=== PATIENT | male | born 1955 | race Caucasian/White ===

== ENCOUNTER 2017-05-19 18:25 | Inpatient (IN) ==
[2017-05-19] MEDS ORDERED: DUONEB NEB STA (18:41)
[2017-05-19] MEDS ORDERED: SODIUM CHLORIDE 1,000 ML IV STA (18:41)
--- NOTE | 2017-05-19 18:46 | ED.PDOC ---
General ED Provider: Dr. JAYDE CHAPPELL Chief Complaint: Abdominal Pain Stated Complaint: Patient reports periumbilcal abdominal pain for two weeks. Also complains of cough with shortness of breath for the past two week getting worse. Time Seen by Physician: 18:44 Mode of Arrival: Walk-In Information Source: Patient Exam Limitations: No limitations Primary Care Provider: DOROTHY ZAMORANO Nursing and Triage Documentation Reviewed and Agree: Yes Review of Systems - Review Of Systems Constitutional: Reports: Loss of appetite Eyes: Reports: No symptoms Ears, Nose, Mouth, Throat: Reports: No symptoms Respiratory: Reports: Cough, Short of air Cardiac: Reports: No symptoms GI: Reports: Abdominal pain : Reports: No symptoms Musculoskeletal: Reports: No symptoms Skin: Reports: No symptoms Neurological: Reports: No symptoms Endocrine: Reports: No symptoms Hematologic/Lymphatic: Reports: No symptoms All Other Systems: Reviewed and Negative Past Medical History - Past Medical History Endocrine: Reports: Dyslipidemia Cardiovascular: Reports: Hypertension Respiratory: Reports: COPD Hematological: Reports: None Gastrointestinal: Reports: None Genitourinary: Reports: None Neuro/Psych: Reports: Migraine Musculoskeletal: Reports: Arthritis, Back Pain Cancer: Reports: None - Surgical History General Surgical History: Reports: Appendectomy, Orthopedic (Knee ), Back Surgery (Spinal surgery ) - Family History Family History: Reports: Unknown - Social History Smoking Status: Current every day smoker, Light tobacco smoker Hx Substance Use: No Alcohol Screening: None Physical Exam - Physical Exam Appearance: Ill-appearing Ill-appearing: Moderate Pain Distress: Moderate Eyes: COURTNEY, EOMI, Conjunctiva clear ENT: Ears normal, Nose normal, Oropharynx normal Neck: Supple Respiratory: Wheezes Cardiovascular: RRR, Pulses normal, No rub, No murmur GI/: Tender (periumbilical area ) Musculoskeletal: Normal strength, ROM intact, No edema, No calf tenderness Skin: Warm, Dry, Normal color Neurological: Sensation intact, Motor intact, Reflexes intact, Cranial nerves intact, Alert, Oriented Psychiatric: Anxious Critical Care Note - Critical Care Note Total Time (mins): 35 Course - Course Hematology/Chemistry: 05/20/17 04:41 05/20/17 04:41 Orders, Labs, Meds: Lab Review 05/19/17 05/19/17 18:41 18:50 WBC 11.89 H RBC 5.28 Hgb 16.5 Hct 48.3 MCV 91.5 MCH 31.3 H MCHC 34.2 RDW Coeff of Analilia 13.2 Plt Count 298 Immature Gran % (Auto) 0.4 Neut % (Auto) 75.0 Lymph % (Auto) 14.1 Nobles % (Auto) 7.4 Eos % (Auto) 2.4 Baso % (Auto) 0.7 Immature Gran # (Auto) 0.1 Neut # 8.9 H Lymph # 1.7 Nobles # 0.9 Eos # 0.3 Baso # 0.1 D-Dimer (Manual) 746.58 Puncture Site Lb O2 Saturation 86.0 L ABG pH 7.394 ABG pCO2 49.3 H ABG pO2 52.0 L* ABG HCO3 30.1 H ABG Total CO2 32 H ABG Base Excess 5 H Alejandro Test + FiO2 % 21.0 Sodium 135 L Potassium 4.0 Chloride 95 L Carbon Dioxide 29 Anion Gap 15.0 BUN 7 Creatinine 1.01 Estimated GFR (MDRD) 76.00 BUN/Creatinine Ratio 6.93 Glucose 134 H Calcium 9.5 Total Bilirubin 0.51 AST 20 ALT 21 Alkaline Phosphatase 102 Total Creatine Kinase 69 Troponin I < 0.0100 B-Natriuretic Peptide < 10 Total Protein 7.9 Albumin 3.8 Globulin 4.1 Albumin/Globulin Ratio 0.93 Amylase 28 Lipase 22 Orders Category Date Time Status ABG DRAW REQUEST Stat CARDIO 05/19/17 18:42 Completed EKG-(ED ONLY) Stat CARDIO 05/19/17 18:41 Completed NEBULIZER TREATMENT Stat CARDIO 05/19/17 18:42 Completed ED APPLY O2 .ONCE EMERGENCY 05/19/17 18:41 Active ED IV/MEDIPORT/POWERPORT .ONCE EMERGENCY 05/19/17 18:41 Active ABG Stat LAB 05/19/17 18:41 Completed AMYLASE Stat LAB 05/19/17 18:50 Completed B-TYPE NATRIURETIC PEPTIDE Stat LAB 05/19/17 18:50 Completed CBC W/ AUTO DIFF Stat LAB 05/19/17 18:50 Completed COMPREHENSIVE METABOLIC PANEL Stat LAB 05/19/17 18:50 Completed CREATINE KINASE Stat LAB 05/19/17 18:50 Completed D-DIMER Stat LAB 05/19/17 18:50 Completed LIPASE Stat LAB 05/19/17 18:50 Completed TROPONIN I Stat LAB 05/19/17 18:50 Completed 0.9 % Sodium Chloride [Saline Flush] MEDS 05/19/17 18:41 Ordered 1 syr IVF PRN PRN Ipratropium/Albuterol Neb [Duoneb] MEDS 05/19/17 18:41 Discontinued 1 vial NEB ONCE STA Methylprednisolone Sod Succ/Pf [Solu-Medrol 125 mg] MEDS 05/19/17 19:22 Discontinued 125 mg IVP ONCE STA Sodium Chloride 0.9% [Sodium Chloride] 1,000 ml MEDS 05/19/17 18:41 Discontinued IV BOLUS CHEST, 1V AP ONLY Stat RADS 05/19/17 18:[address] ABD/PEL WO RENAL STONE PROT Stat RADS 05/19/17 18:44 Completed Medications Generic Name Dose Route Start Last Admin Trade Name Freq PRN Reason Stop Dose Admin Albuterol/Ipratropium 1 vial 05/20/17 06:00 05/20/17 05:01 Duoneb NEB 1 vial RTQID LAILA Administration Albuterol/Ipratropium 1 vial 05/19/17 21:08 Duoneb NEB RTQ4H PRN Wheezing Dicyclomine HCl 10 mg 05/20/17 06:30 05/20/17 05:31 Bentyl PO 10 mg ACHS LAILA Administration Doxycycline Hyclate 100 mg 05/19/17 21:30 05/19/17 21:49 Doxycycline Hyclate PO 100 mg Q12HR LAILA Administration Enoxaparin Sodium 40 mg 05/20/17 09:00 Lovenox SUBCUT DAILY LAILA Sodium Chloride 1,000 mls @ 75 mls/hr 05/19/17 21:30 05/19/17 21:50 Sodium Chloride IV 75 mls/hr .[id number] LAILA Administration Lisinopril 10 mg 05/20/17 09:00 Zestril PO DAILY LAILA Meloxicam 7.5 mg 05/20/17 09:00 Mobic PO BID LAILA Methadone HCl 10 mg 05/20/17 09:00 Methadone PO TID LAILA Methylprednisolone Sodium Succinate 125 mg 05/20/17 05:00 05/20/17 05:30 Solu-Medrol 125 Mg IVP 125 mg Q8HR LAILA Administration Morphine Sulfate 2 mg 05/19/17 21:18 05/20/17 05:30 Morphine 2 Mg/Ml Syringe IVP 2 mg Q4H PRN Administration Severe Pain Nicotine 1 patch 05/19/17 21:37 05/19/17 21:52 Nicoderm 21 Mg TD 1 patch DAILY LAILA Administration Non-Formulary Medication 100 mg 05/20/17 09:00 Oxcarbazepine [Trileptal] PO DAILY LAILA Non-Formulary Medication 300 mg 05/20/17 21:00 Oxcarbazepine [Trileptal] PO BEDTIME LAILA Non-Formulary Medication 20 mg 05/20/17 09:00 Simvastatin [Simvastatin] PO DAILY LAILA Non-Formulary Medication 1 mg 05/20/17 09:00 Clonazepam [Klonopin] PO TID LAILA Ondansetron HCl 4 mg 05/19/17 21:08 05/20/17 05:30 Zofran 4 Mg/2 Ml IVP 4 mg Q6H PRN Administration Nausea / Vomiting Pantoprazole Sodium 40 mg 05/20/17 09:00 Protonix Iv IVP DAILY LAILA Sodium Chloride 1 syr 05/19/17 18:41 05/19/17 19:49 Saline Flush IVF 1 syr PRN PRN Administration To flush IV Discontinued Medications Generic Name Dose Route Start Last Admin Trade Name Freq PRN Reason Stop Dose Admin Albuterol/Ipratropium 1 vial 05/19/17 18:41 05/19/17 19:05 Duoneb NEB 05/19/17 18:42 1 vial ONCE STA Administration Sodium Chloride 1,000 mls @ 1,000 mls/hr 05/19/17 18:41 05/19/17 19:47 Sodium Chloride IV 05/19/17 19:40 1,000 mls/hr BOLUS STA Administration Methylprednisolone Sodium Succinate 125 mg 05/19/17 19:22 05/19/17 19:51 Solu-Medrol 125 Mg IVP 05/19/17 19:23 125 mg ONCE STA Administration Nicotine 1 patch 05/20/17 09:00 Nicoderm 21 Mg TD DAILY [facility] Vital Signs: Temp Pulse Resp BP Pulse Ox 05/19/17 18:27 97.5 F L 89 18 130/84 89 L Departure - Departure Time of Disposition: 21:00 Disposition: ADMITTED INPATIENT Discharge Problem: COPD exacerbation, Hypoxia Abdominal pain Qualifiers: Abdominal location: periumbilical Qualifier Code: (R10.33) Periumbilical pain Condition: Fair Pt referred to PMD for follow-up: Yes Allergies/Adverse Reactions: Allergies No Known Allergies Allergy (Verified 05/19/17 18:31) Home Medications: Ambulatory Orders Clonazepam [Klonopin] 1 mg PO TID 02/12/15 Methadone HCl 10 mg PO TID 02/12/15 Oxcarbazepine [Trileptal] 300 mg PO BEDTIME 02/12/15 Pantoprazole Sodium [Protonix] 40 mg PO d 02/12/15 Oxcarbazepine [Trileptal] 100 mg PO DAILY 03/15/16 Disposition Discussed With: Patient
[2017-05-19 18:58] LABS: BASOPHILS # (AUTO) 0.1 K/uL (0-0.2); BASOPHILS % (AUTO) 0.7 % (0.0-3.0); EOSINOPHILS # (AUTO) 0.3 K/ul (0.0-0.7); EOSINOPHILS % (AUTO) 2.4 % (0.0-7.0); HEMATOCRIT 48.3 % (42.0-52.0); HEMOGLOBIN 16.5 g/dl (14.0-18.0); IMMATURE GRANULOCYTE % (AUTO) 0.4 % (0.0-5.0); LYMPHOCYTES # (AUTO) 1.7 K/uL (0.60-3.4); LYMPHOCYTES % (AUTO) 14.1 (10.0-50.0); MEAN CORPUSCULAR HEMOGLOBIN 31.3 pg (27.0-31.0); MEAN CORPUSCULAR HGB CONC 34.2 (31.8-35.4); MEAN CORPUSCULAR VOLUME 91.5 fl (80.0-94.0); MONOCYTES # (AUTO) 0.9 K/uL (0.4-2.0); MONOCYTES % (AUTO) 7.4 (0-10); NEUTROPHILS # (AUTO) 8.9 K/ul (2.0-6.9); PLATELET COUNT 298 10^3/uL (140-440); RED BLOOD COUNT 5.28 10^6/ul (4.70-6.10); WHITE BLOOD COUNT 11.89 K/ul (4.2-10.2)
[2017-05-19 19:16] LABS: AMYLASE 28 U/L (25-115); LIPASE 22 U/L (8-78)
[2017-05-19 19:17] LABS: ABG PCO2 49.3 mmHg (35-45); ABG PH 7.394 (7.35-7.45)
[2017-05-19 19:20] LABS: ABG BASE EXCESS 5 (-2.0-2.0); ABG HCO3 30.1 (22.0-26.0); ABG TCO2 32 (22.0-28.0)
[2017-05-19] MEDS ORDERED: SOLU-MEDROL 125 MG IVP STA (19:22)
[2017-05-19 19:24] LABS: ALANINE AMINOTRANSFERASE 21 U/L (12-78); ALBUMIN 3.8 g/dL (3.4-5.0); ALBUMIN/GLOBULIN RATIO 0.93; ALKALINE PHOSPHATASE 102 U/L (56-119); ASPARTATE AMINO TRANSFERASE 20 U/L (15-37); BILIRUBIN,TOTAL 0.51 mg/dL (0.00-1.20); BLOOD UREA NITROGEN 7 mg/dL (7-18); BUN/CREATININE RATIO 6.93; CALCIUM 9.5 mg/dL (8.2-10.2); CARBON DIOXIDE 29 mmol/L (21-32); CHLORIDE 95 mmol/L (98-107); CREATINE KINASE 69 U/L; CREATININE 1.01 mg/dL (0.60-1.10); GLUCOSE 134 mg/dL (70-100); SODIUM 135 mmol/L (136-145); TOTAL PROTEIN 7.9 g/dL (6.4-8.2)
--- NOTE | 2017-05-19 19:48 | CT ---
EXAM: CT scan abdomen pelvis without contrast HISTORY: Periumbilical pain by 2-week COMPARISON: None. FINDINGS: Contiguous axial images obtained through the abdomen pelvis without contrast utilizing 3- mm collimation. Sagittal and coronal reconstructions were imaged and reviewed.. There is minimal b ibasilar atelectasis. Fatty filtration is seen within the liver. There are numerous low-attenuatio n lesions within the liver, mos of t which are too small to characterize and likely cystic in nature . The gallbladder is fluid filled without cholelithiasis.. Numerous renal cysts are noted bilateral ly compatible with polycystic kidney disease.. There are peripheral punctate calcifications within multiple cysts bilaterally in addition to nonobstructive right-sided nephrolithiasis. There is no evidence of ureterolithiasis. The prostate gland is normal in size.. The bladder is small volumed with mild wall thickening.. Scoliosis and degenerative changes are seen within the lumbar spine.. There is incompletely visualized Erickson forrest which extends to the L1 level. IMPRESSION: Minimal bibasilar atelectasis. ASVD without aneurysm. Fatty liver. Changes compatible with polycystic kidney disease with nonobstructive right-side nephrolithiasis.
[2017-05-19] MEDS ORDERED: DUONEB NEB PRN (21:08)
[2017-05-19 21:31] VITALS: BMI 30.2
[2017-05-19] MEDS: DOXYCYCLINE HYCLATE PO SCH (21:49)
[2017-05-19] MEDS: SODIUM CHLORIDE 1,000 ML IV SCH (21:50)
[2017-05-19] MEDS: NICODERM 21 MG TD SCH (21:52)
[2017-05-19] MEDS: MORPHINE 2 MG/ML SYRINGE IVP PRN (23:34)
[2017-05-19] MEDS: ZOFRAN 4 MG/2 ML IVP PRN (23:34)
[2017-05-20 04:42] LABS: BASOPHILS % (AUTO) 0.3 % (0.0-3.0); EOSINOPHILS % (AUTO) 0.1 % (0.0-7.0); HEMOGLOBIN 16.4 g/dl (14.0-18.0); IMMATURE GRANULOCYTE % (AUTO) 0.6 % (0.0-5.0); LYMPHOCYTES % (AUTO) 8.2 (10.0-50.0); MEAN CORPUSCULAR HEMOGLOBIN 31.2 pg (27.0-31.0); MEAN CORPUSCULAR HGB CONC 34.2 (31.8-35.4); MEAN CORPUSCULAR VOLUME 91.4 fl (80.0-94.0); MONOCYTES # (AUTO) 0.2 K/uL (0.4-2.0); MONOCYTES % (AUTO) 1.4 (0-10); NEUTROPHILS # (AUTO) 10.8 K/ul (2.0-6.9); NEUTROPHILS % (AUTO) 89.4; PLATELET COUNT 332 10^3/uL (140-440); RED BLOOD COUNT 5.25 10^6/ul (4.70-6.10); WHITE BLOOD COUNT 12.13 K/ul (4.2-10.2)
--- NOTE | 2017-05-20 04:50 | DI ---
EXAM: AP single view of the chest. HISTORY: Cough. FINDINGS: There is dextroscoliosis of the thoracic spine. There is a left-sided spinal forrest. The c ardiac silhouette and pulmonary vasculature are within normal limits. The costophrenic angles are c lear. There are calcified granulomas. There is minimal right basilar atelectasis and/or pneumonia. Impression: Minimal right basilar atelectasis and/or pneumonia.
[2017-05-20] MEDS: DUONEB NEB SCH ×4 (05:01→19:19)
[2017-05-20 05:02] LABS: ANION GAP 15.8; BUN/CREATININE RATIO 8.73; CALCIUM 9.3 mg/dL (8.2-10.2); CREATININE 1.03 mg/dL (0.60-1.10); POTASSIUM 4.8 mmol/L (3.5-5.1)
[2017-05-20] MEDS: ZOFRAN 4 MG/2 ML IVP PRN ×2 (05:30→13:43)
[2017-05-20] MEDS: SOLU-MEDROL 125 MG IVP SCH ×3 (05:30→20:28)
[2017-05-20] MEDS: MORPHINE 2 MG/ML SYRINGE IVP PRN ×2 (05:30→13:43)
[2017-05-20] MEDS: BENTYL PO SCH ×4 (05:31→20:28)
[2017-05-20] MEDS ORDERED: NON-FORMULARY MEDICATION (Simvastatin [Simvastatin] 20 MG) PO SCH ×22 (09:00)
[2017-05-20] MEDS ORDERED: KLONOPIN PO SCH (09:00)
[2017-05-20] MEDS ORDERED: OXCARBAZEPINE PO SCH (09:00)
[2017-05-20] MEDS ORDERED: NICODERM 21 MG TD SCH (09:00)
[2017-05-20] MEDS ORDERED: NON-FORMULARY MEDICATION (Clonazepam [Klonopin] 1 MG) PO SCH ×22 (09:00)
[2017-05-20] MEDS: METHADONE PO SCH ×3 (09:16→20:28)
[2017-05-20] MEDS: DOXYCYCLINE HYCLATE PO SCH ×2 (09:17→20:28)
[2017-05-20] MEDS: ZOCOR PO SCH (09:17)
[2017-05-20] MEDS: ZESTRIL PO SCH (09:17)
[2017-05-20] MEDS: MOBIC PO SCH ×2 (09:17→20:28)
[2017-05-20] MEDS: LOVENOX SUBCUT SCH (09:18)
[2017-05-20] MEDS: PROTONIX IV IVP SCH (09:18)
[2017-05-20] MEDS: NICODERM 21 MG TD SCH (09:19)
[2017-05-20] MEDS: SODIUM CHLORIDE 1,000 ML IV SCH ×2 (10:27→12:10)
[2017-05-20] MEDS ORDERED: OXCARBAZEPINE 150 MG PO SCH ×22 (10:52)
[2017-05-20] MEDS: TRILEPTAL PO SCH ×2 (12:07→20:28)
[2017-05-20] MEDS ORDERED: ROCEPHIN ONE (13:51)
[2017-05-20] MEDS: ROCEPHIN 1 GM in SODIUM CHLORIDE 50 ML IV SCH (14:02)
[2017-05-20] MEDS: KLONOPIN PO SCH ×2 (14:21→20:28)
[2017-05-20] MEDS ORDERED: NON-FORMULARY MEDICATION (Oxcarbazepine [Trileptal] 300 MG) PO SCH (21:00)
[2017-05-21] MEDS: SOLU-MEDROL 125 MG IVP SCH ×3 (04:32→20:18)
[2017-05-21] MEDS: DUONEB NEB SCH ×4 (04:46→19:44)
[2017-05-21 04:53] LABS: BASOPHILS # (AUTO) 0.1 K/uL (0-0.2); BASOPHILS % (AUTO) 0.2 % (0.0-3.0); HEMATOCRIT 42.2 % (42.0-52.0); HEMOGLOBIN 14.5 g/dl (14.0-18.0); IMMATURE GRANULOCYTE % (AUTO) 1.4 % (0.0-5.0); LYMPHOCYTES # (AUTO) 1.4 K/uL (0.60-3.4); LYMPHOCYTES % (AUTO) 5.6 (10.0-50.0); MEAN CORPUSCULAR HEMOGLOBIN 31.6 pg (27.0-31.0); MEAN CORPUSCULAR HGB CONC 34.4 (31.8-35.4); MEAN CORPUSCULAR VOLUME 91.9 fl (80.0-94.0); MONOCYTES # (AUTO) 1.1 K/uL (0.4-2.0); MONOCYTES % (AUTO) 4.3 (0-10); NEUTROPHILS # (AUTO) 22.5 K/ul (2.0-6.9); NEUTROPHILS % (AUTO) 88.5; PLATELET COUNT 292 10^3/uL (140-440); RED BLOOD COUNT 4.59 10^6/ul (4.70-6.10); WHITE BLOOD COUNT 25.45 K/ul (4.2-10.2)
[2017-05-21 05:26] LABS: ANION GAP 20.6; BUN/CREATININE RATIO 15.38; CREATININE 1.69 mg/dL (0.60-1.10); POTASSIUM 4.6 mmol/L (3.5-5.1)
[2017-05-21] MEDS: BENTYL PO SCH ×4 (05:36→20:17)
[2017-05-21] MEDS: DOXYCYCLINE HYCLATE PO SCH ×2 (08:41→20:17)
[2017-05-21] MEDS: ROCEPHIN 1 GM in SODIUM CHLORIDE 50 ML IV SCH (08:41)
[2017-05-21] MEDS: LOVENOX SUBCUT SCH (08:42)
[2017-05-21] MEDS: MOBIC PO SCH ×2 (08:42→20:17)
[2017-05-21] MEDS: METHADONE PO SCH ×3 (08:42→20:17)
[2017-05-21] MEDS: KLONOPIN PO SCH ×3 (08:42→20:17)
[2017-05-21] MEDS: TRILEPTAL PO SCH ×2 (08:43→20:17)
[2017-05-21] MEDS: PROTONIX IV IVP SCH (08:43)
[2017-05-21] MEDS: NICODERM 21 MG TD SCH (08:43)
[2017-05-21] MEDS: ZOCOR PO SCH (08:44)
[2017-05-21] MEDS: ZESTRIL PO SCH (08:56)
[2017-05-21] MEDS: SODIUM CHLORIDE 1,000 ML IV SCH (09:55)
[2017-05-21] MEDS ORDERED: DULCOLAX PO STA (13:36)
[2017-05-21] MEDS ORDERED: CITRATE OF MAGNESIA PO STA (13:38)
[2017-05-21] MEDS ORDERED: CITRATE OF MAGNESIA PO ONE (13:40)
--- NOTE | 2017-05-21 14:37 | DI ---
EXAM: Two-view chest. HISTORY: Cough. COMPARISON: 05/19/2017 FINDINGS: Frontal and lateral views of the chest. There is scoliosis of the spine to the right wit h a Erickson forrest. The lung volumes are normal. Minimal bibasilar atelectasis is seen. The heart size and pulmonary vasculature are within normal limits. There are no suspicious pulmonary nodules . The pulmonary interstitium is normal. The aorta is tortuous and calcified. The osseous struct ures show mild degenerative changes consistent with age. IMPRESSION: Bibasilar air space opacities are seen which have the appearance of atelectasis. Pneumonia cannot be completely excluded. Recommend follow-up.
[2017-05-22] MEDS: DUONEB NEB SCH ×2 (05:09→10:23)
[2017-05-22 05:15] LABS: BASOPHILS % (AUTO) 0.1 % (0.0-3.0); HEMOGLOBIN 15.5 g/dl (14.0-18.0); IMMATURE GRANULOCYTE % (AUTO) 1.2 % (0.0-5.0); LYMPHOCYTES # (AUTO) 1.2 K/uL (0.60-3.4); LYMPHOCYTES % (AUTO) 4.8 (10.0-50.0); MEAN CORPUSCULAR HEMOGLOBIN 31.6 pg (27.0-31.0); MEAN CORPUSCULAR HGB CONC 35.2 (31.8-35.4); MEAN CORPUSCULAR VOLUME 89.6 fl (80.0-94.0); MONOCYTES # (AUTO) 1.2 K/uL (0.4-2.0); MONOCYTES % (AUTO) 4.7 (0-10); NEUTROPHILS # (AUTO) 22.5 K/ul (2.0-6.9); NEUTROPHILS % (AUTO) 89.2; PLATELET COUNT 308 10^3/uL (140-440); RED BLOOD COUNT 4.91 10^6/ul (4.70-6.10); WHITE BLOOD COUNT 25.21 K/ul (4.2-10.2)
[2017-05-22 05:30] LABS: ANION GAP 18.1; BUN/CREATININE RATIO 25.89; CALCIUM 9.1 mg/dL (8.2-10.2); CREATININE 1.12 mg/dL (0.60-1.10); POTASSIUM 5.1 mmol/L (3.5-5.1)
[2017-05-22] MEDS: SOLU-MEDROL 125 MG IVP SCH (05:39)
[2017-05-22] MEDS: BENTYL PO SCH ×2 (05:39→11:46)
[2017-05-22] MEDS: LOVENOX SUBCUT SCH (09:21)
[2017-05-22] MEDS: KLONOPIN PO SCH (09:23)
[2017-05-22] MEDS: METHADONE PO SCH (09:23)
[2017-05-22] MEDS: TRILEPTAL PO SCH (09:24)
[2017-05-22] MEDS: DOXYCYCLINE HYCLATE PO SCH (09:24)
[2017-05-22] MEDS: MOBIC PO SCH (09:25)
[2017-05-22] MEDS: ZOCOR PO SCH (09:25)
[2017-05-22] MEDS: ROCEPHIN 1 GM in SODIUM CHLORIDE 50 ML IV SCH (09:26)
[2017-05-22] MEDS: NICODERM 21 MG TD SCH (09:27)
[2017-05-22] MEDS: ZESTRIL PO SCH (09:30)
[2017-05-22] MEDS: SODIUM CHLORIDE 1,000 ML IV SCH (09:30)
[2017-05-22] MEDS: PROTONIX IV IVP SCH (10:17)
[2017-05-22 11:14] VITALS: BP 116/75; TEMP 97.8
--- NOTE | 2017-05-22 13:01 | HP ---
DATE OF SERVICE: 05/19/17 CHIEF COMPLAINT: Abdominal pain and shortness of breath. HISTORY OF PRESENT ILLNESS: This is a 61-year-old male with a history of smoking. He came to the emergency room, has been hurting in the abdomen, around the umbilicus as well as cough, congestion and shortness of breath getting yellow-green phlegm. Dr. Zamarripa saw the patient. CT abdomen did not show any acute finding. D. dimer 746. ABGs were done which showed pH 7.394, pc02 49.3, p02 52. Amylase, lipase is normal. BNP normal. At that time in view of respiratory failure, abdominal pain, COPD exacerbation and bronchitis, the patient is admitted to the hospital for IV antibiotics, breathing treatment and steroids. REVIEW OF SYSTEMS: CONSTITUTIONAL: Weakness, tiredness. No fever, no chills. HEENT: Normal. ENDOCRINE: No weight gain; no weight loss. CVS: No chest pain. No PND, no orthopnea. Positive for shortness of breath. No PND, no orthopnea. RESPIRATORY: Cough and congestion with yellow-green phlegm. No hemoptysis. Some shortness of breath. GI: Abdomina pain periumbilical. No nausea, no vomiting. No diarrhea. No melena. : No hematuria. No polyuria. MUSCULOSKELETAL: No joint swelling. PSYCHIATRIC: Not anxious. No depression. No suicidal thoughts. No homicidal thoughts. SKIN: Intact, no open lesions. PAST MEDICAL HISTORY: 1. CAD 2. Dyslipidemia 3. Hypertension 4. COPD 5. Sleep apnea 6. Osteoarthritis 7. Chronic pain 8. Depression/anxiety 9. Substance use 10. Nicotine use PAST SURGICAL HISTORY: 1. Appendectomy PERSONAL HISTORY: Does smoke. No alcohol. No drugs. FAMILY HISTORY: Significant for heart attack. MEDICATIONS: (HOME) 1. Klonopin 2. Methadone 3. Protonix 4. TrileptaL 5. Lisinopril 6. Albuterol 7. Mobic 8. Simvastatin ALLERGIES: NKDA PHYSICAL EXAMINATION: GENERAL APPEARANCE: Sick-looking man sitting in bed, not in any distress. V/S: BP 130/84, respiratory rate 18, heart rate 89, temperature 97.5. Saturations 89% on 2L. HEENT: Atraumatic, normocephalic. No scleral icterus. Pallor positive. Mucosa dry. NECK: Supple. No JVD, no bruit. No lymphadenopathy. No thyromegaly. HEART: S1, S2 normal. No murmur. No cyanosis or clubbing. No ascites. LUNGS: Decreased with some fine basilar crackles. ABDOMEN: Soft, discomfort all over more around periumbilical area. No hernia is seen. Bowel sounds are active. No CVA tenderness. No rigidity or guarding. EXTREMITIES: No cyanosis, clubbing or pedal edema. MUSCULOSKELETAL: Grossly intact. NEUROLOGIC: The patient is awake, alert. SKIN: Intact and dry. LYMPHATIC: No lymph nodes palpable. LABS: White count 11.89, hemoglobin 16.5, hematocrit 48.3, platelet count 298. D. dimer 746. ABGs pH 7.394, pc02 49.3, p02 52. Sodium 135, potassium 4.0, chloride 95, bicarb 29. BUN 7, creatinine 1.01, glucose 134. Amylase, lipase 28 and 22. First set of cardiac enzymes negative. ASSESSMENT: 1. COPD EXACERBATION SECONDARY TO BRONCHITIS 2. HYPOXIC RESPIRATORY FAILURE 3. ABDOMINAL PAIN, PROBABLY FROM CHRONIC NSAID INTAKE AND GASTRITIS, NO ACUTE PATHOLOGY 4. HISTORY OF HYPERTENSION/DYSLIPIDEMIA 5. SLEEP APNEA ON CPAP 6. NICOTINE USE 7. CHRONIC PAIN SYNDROME 8. DJD SPINE PLAN: 1. Admit the patient to the regular floor. 2. CBC, CMP today and daily. 3. Cardiac enzymes and troponin. 4. Solu-Medrol 125 q.8hr. 5. Doxycycline 100 mg q.12. 6. Lovenox for DVT prophylaxis. 7. Duonebs. 8. Nicotine patch. 9. IV fluids at 75 mL/hr. 10. Daily I & O's. TIME SPENT: MORE THAN 70 minutes (The patient seen and examined same day) [facility]
--- NOTE | 2017-05-22 13:11 | PN ---
DATE OF SERVICE: 05/20/17 SUBJECTIVE: The patient is admitted with COPD exaceration, progressive and abdominal pain. Abdominal pain is better with 2L. Saturation maintained around 91 to 94, not in any distress. REVIEW OF SYSTEMS: CONSTITUTIONAL: Weakness, tiredness. No fever, no chills. HEENT: Normal. ENDOCRINE: No weight gain, no weight loss. CVS: No angina symptoms. No CHF symptoms. No palpitations. No atypical chest pain for CAD. No shortness of breath. No PND, no orthopnea. RESPIRATORY: No cough, no hemoptysis. GI: No nausea, no vomiting. No abdominal pain. : No hematuria. No polyuria. MUSCULOSKELETAL:. No joint swelling. PSYCHIATRIC: Not anxious. No depression. No suicidal thoughts. No homicidal thoughts. SKIN: Intact. No rash. PHYSICAL EXAMINATION: V/S: BP 139/89, respiratory rate 20, heart rate 103, temperature 98.1, saturation 94% on 2L. HEENT: Normocephalic, atraumatic. Mucosa dry. NECK: Supple. No JVD, no carotid bruit. No lymphadenopathy. LUNGS: Decreased with basilar crackles, left more than right. HEART: S1, S2 normal. No S3. No murmur, gallop or regurgitation. ABDOMEN: Soft, discomfort all over. No rigidity or guarding. Bowel sounds active. No rigidity. No rebound or guarding. No CVA tenderness. EXTREMITIES: No clubbing, cyanosis or pedal edema. MUSCULOSKELETAL: No joint swelling. NEUROLOGIC: The patient is awake, alert, oriented times three. No focal deficit. LYMPHATIC: No lymph nodes palpable. SKIN: Intact. LABS: White count 12.13, hemoglobin 16.4, hematocrit 48.0, platelet count 332. Sodium 131, potassium 4.8, chloride 96, bicarb 26, BUN 9, creatinine 1.03, glucose 162. ASSESSMENT: 1. COPD EXACERBATION SECONDARY TO BRONCHITIS 2. ACUTE GASTRITIS 3. HISTORY OF CORONARY DISEASE 4. HYPERTENSION 5. DYSLIPIDEMIA 6. USE OF PAIN MEDICATION 7. DEPRESSION/ANXIETY PLAN: 1. Rocephin 1 gm daily 2. Solu-Medrol 125 mg q.8hr 3. Duonebs 4. I & O's 5. Decreased IV fluids to 40 mL/hr TIME SPENT: More than 30 minutes MTDD
--- NOTE | 2017-05-22 13:23 | PN ---
DATE OF SERVICE: 05/21/17 SUBJECTIVE: Admitted with right lower lobe pneumonia and abdominal pain most likely from constipation, still having some coughing and some belly pain. Blood pressure has been on the lower side 90 to 104. No fever, no chills. No PND, no orthopnea. REVIEW OF SYSTEMS: CONSTITUTIONAL: No fever, no chills. HEENT: Normal. ENDOCRINE: No weight gain, no weight loss. CVS: No angina symptoms. No CHF symptoms. No palpitations. No atypical chest pain for CAD. No shortness of breath. No PND, no orthopnea. RESPIRATORY: No cough, no hemoptysis. GI: No nausea, no vomiting. No abdominal pain. : No hematuria. No polyuria. MUSCULOSKELETAL:. No joint swelling. PSYCHIATRIC: Not anxious. No depression. No suicidal thoughts. No homicidal thoughts. SKIN: Intact. No rash. PHYSICAL EXAMINATION: V/S: BP 96/58, respiratory rate 20, heart rate 100, temperature 98.6, saturation 93% on 2L. The patient is still going out and smoking. HEENT: Normocephalic, atraumatic. Mucosa dry, pallor positive. No icterus. NECK: Supple. No JVD, no carotid bruit. No lymphadenopathy. LUNGS: Decreased basilar crackles, right more than left. HEART: S1, S2 normal. No S3. No murmur, gallop or regurgitation. ABDOMEN: Soft, discomfort all over, more in the periumbilical area. Bowel sounds sluggish. No rigidity. No rebound or guarding. No CVA tenderness. EXTREMITIES: No clubbing, cyanosis or pedal edema. MUSCULOSKELETAL: No joint swelling. NEUROLOGIC: Awake, alert, oriented times three. No focal deficit. LYMPHATIC: No lymph nodes palpable. SKIN: Intact. LABS: White count 25.45, hemoglobin 14.5, hematocrit 42.2, platelet count 292. Sodium 134, potassium 4.6, chloride 95, bicarb 23, BUN 26, creatinine 1.69. ASSESSMENT: 1. RIGHT LOWER LOBE PNEUMONIA 2. COPD EXACERBATION SECONDARY TO PNEUMONIA 3. HYPOXEMIC RESPIRATORY FAILURE 4. ABDOMINAL PAIN FROM CONSTIPATION 5. HYPOTENSION MOST LIKELY FROM MEDICATION 6. DEHYDRATION 7. CHRONIC PAIN SYNDROME 8. HYPERTENSION 9. DYSLIPIDEMIA PLAN: 1. Continue Rocephin 2. Lovenox for DVT prophylaxis 3. Duonebs b.i.d. 4. Will decrease the Solu-Medrol to 60 q.8hr 5. IV fluids at 40 mL/hr 6. Daily I & O's 7. Will follow with the patient in daily rounds TIME SPENT: More than 30 minutes MTDD
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
== END 2017-05-22 13:30 | disposition home or self-care (01) | DRG 193 ==
LOC: ED 18:25 → MEDSURG A 20:37
PROVIDERS: ADMIT Emergency Medicine; ATTEND Emergency Medicine
DX: J18.9 Pneumonia, unspecified organism (principal); J96.01 Acute respiratory failure with hypoxia; J44.1 Chronic obstructive pulmonary disease with (acute) exacerbation; J98.11 Atelectasis; R06.02 Shortness of breath; R10.33 Periumbilical pain; K59.00 Constipation, unspecified; I10 Essential (primary) hypertension; E78.5 Hyperlipidemia, unspecified; K29.70 Gastritis, unspecified, without bleeding; I95.2 Hypotension due to drugs; E86.0 Dehydration; G89.4 Chronic pain syndrome; I70.90 Unspecified atherosclerosis; K76.0 Fatty (change of) liver, not elsewhere classified; M19.90 Unspecified osteoarthritis, unspecified site; M47.9 Spondylosis, unspecified; G47.30 Sleep apnea, unspecified; F41.8 Other specified anxiety disorders; R05 Cough; F17.200 Nicotine dependence, unspecified, uncomplicated; Z79.891 Long term (current) use of opiate analgesic; Z79.899 Other long term (current) drug therapy; Z99.89 Dependence on other enabling machines and devices
CPT/HCPCS: 36415; 74176; 80048; 80053; 82150; 82550; 82803; 83690; 83880; 84484; 85025; 85379; 93005; 93010; 94640; 94761; 96361; 96374; 99284

== ENCOUNTER 2017-06-21 06:09 | Emergency (ER) ==
[2017-06-21 06:22] VITALS: BP 146/93; TEMP 97.8; BMI 29.5
[2017-06-21] MEDS ORDERED: ZOFRAN 4 MG/2 ML IVP STA (06:23)
[2017-06-21] MEDS ORDERED: PROTONIX IV IVP STA (06:23)
[2017-06-21] MEDS ORDERED: MORPHINE 4 MG/ML VIAL IVP STA (06:23)
[2017-06-21] MEDS ORDERED: SODIUM CHLORIDE 1,000 ML IV STA (06:23)
--- NOTE | 2017-06-21 06:44 | ED.PDOC ---
General <DEAN HUERTA - Last Filed: 06/21/17 07:47> Stated Complaint: Pateint is a 61 year old Male who comes to the ER with two day history of periumbilical Abdomimal pain. States he tried to take Mag citrate x 2 with some diarrhea but did not help the pain much. Time Seen by Physician: 06:42 Mode of Arrival: Walk-In Information Source: Patient Exam Limitations: No limitations Nursing and Triage Documentation Reviewed and Agree: Yes <JAYDE CHAPPELL Last Filed: 06/21/17 23:37> ED Provider: Dr. JAYDE CHAPPELL Chief Complaint: Nausea/Vomiting Primary Care Provider: DOROTHY ZAMORANO GI Complaint Exam - Abdominal Pain Complaint/Exam Onset: Gradual Duration: 2 days Symptoms Are: Still present Timing: Constant Initial Severity: Moderate Current Severity: Moderate Location of Pain: Diffuse Radiates To: Reports: LLQ. Denies: Chest, Back, Flank Character: Reports: Dull, Aching, Throbbing Aggravating: Reports: None Alleviating: Reports: None Associated Signs and Symptoms: Reports: Nausea. Denies: Fever, Cough, Chest pain, Back pain, Blood in stool, Dysuria, Urinary frequency, Vomiting, Diarrhea , Decreased activity AAA Risk Factors: Reports: None Cardiac Risk Factors: Reports: None Testicular Torsion Risk Factors: Reports: None Surgical Obstruction Risk Factors: Reports: Prior abdominal surgery ( appendectomy ) Related Surgical History: Reports: Appendectomy Differential Diagnoses: Bowel Obstruction, Diverticulitis, Pancreatitis, UTI <JAYDE CHAPPELL - Last Filed: 06/21/17 23:37> Review of Systems - Review Of Systems Constitutional: Reports: No symptoms Eyes: Reports: No symptoms Ears, Nose, Mouth, Throat: Reports: No symptoms Respiratory: Reports: No symptoms Cardiac: Reports: No symptoms GI: Reports: Abdominal pain, Nausea : Reports: No symptoms Musculoskeletal: Reports: No symptoms Skin: Reports: No symptoms Neurological: Reports: No symptoms Endocrine: Reports: No symptoms Hematologic/Lymphatic: Reports: No symptoms All Other Systems: Reviewed and Negative <JAYDE CHAPPELL Last Filed: 06/21/17 23:37> Past Medical History - Past Medical History Endocrine: Reports: Dyslipidemia Cardiovascular: Reports: Hypertension Respiratory: Reports: COPD Hematological: Reports: None Gastrointestinal: Reports: None Genitourinary: Reports: None Neuro/Psych: Reports: Migraine Musculoskeletal: Reports: Arthritis, Back Pain Cancer: Reports: None - Surgical History General Surgical History: Reports: Appendectomy, Orthopedic (Knee ), Back Surgery (Spinal surgery ) - Family History Family History: Reports: Unknown - Social History Smoking Status: Former smoker, Light tobacco smoker Hx Substance Use: No Alcohol Screening: None <JAYDE CHAPPELL - Last Filed: 06/21/17 23:37> Physical Exam - Physical Exam Appearance: Ill-appearing, Obese Ill-appearing: Moderate Pain Distress: Severe Eyes: Conjunctiva clear Respiratory: Airway patent, Breath sounds clear, Breath sounds equal Cardiovascular: RRR, Pulses normal, No murmur GI/: Soft, Tender (mild periumbilical area ) Musculoskeletal: Normal strength, ROM intact, No edema, No calf tenderness Skin: Warm, Dry, Normal color Neurological: Motor intact, Alert, Oriented Psychiatric: Anxious <JAYDE CHAPPELL - Last Filed: 06/21/17 23:37> Interpretation - Radiology Interpretation Radiology Interpretation By: Radiologist Radiology Results: No acute changes Exam Interpreted: CT Scan <JAYDE CHAPPELL - Last Filed: 06/21/17 23:37> Physician Notification - Case Discussed Endorsed To/Discussed With: Dr Pérez Time of Discussion: 07:00 <JAYDE CHAPPELL - Last Filed: 06/21/17 23:37> Critical Care Note - Critical Care Note Total Time (mins): 0 <JAYDE CHAPPELL - Last Filed: 06/21/17 23:37> Course - Course Hematology/Chemistry: 06/21/17 06:56 06/21/17 06:56 <DEAN HUERTA - Last Filed: 06/21/17 07:47> - Course Hematology/Chemistry: 06/21/17 06:56 06/21/17 06:56 <JAYDE CHAPPELL - Last Filed: 06/21/17 23:37> - Course Orders, Labs, Meds: Lab Review 06/21/17 06/21/17 06/21/17 06:45 06:56 06:56 WBC 13.10 H RBC 5.02 Hgb 15.8 Hct 45.2 MCV 90.0 MCH 31.5 H MCHC 35.0 RDW Coeff of Analilia 12.8 Plt Count 295 Immature Gran % (Auto) 0.5 Neut % (Auto) 75.8 Lymph % (Auto) 14.0 [place] % (Auto) 7.6 Eos % (Auto) 1.5 Baso % (Auto) 0.6 Immature Gran # (Auto) 0.1 Neut # 9.9 H Lymph # 1.8 [place] # 1.0 Eos # 0.2 Baso # 0.1 Sodium 132 L Potassium 4.0 Chloride 93 L Carbon Dioxide 30 Anion Gap 13.0 BUN 7 Creatinine 1.10 Estimated GFR (MDRD) 69.00 BUN/Creatinine Ratio 6.36 Glucose 147 H Calcium 9.5 Total Bilirubin 0.44 AST 27 ALT 26 Alkaline Phosphatase 103 Total Creatine Kinase 105 Troponin I < 0.0100 Total Protein 7.5 Albumin 3.7 Globulin 3.8 Albumin/Globulin Ratio 0.97 Amylase 40 Lipase 38 Urine Color Urine Clarity Urine pH Ur Specific [place] Urine Protein Urine Glucose (UA) Urine Ketones Urine Blood Urine Nitrite Urine Bilirubin Urine Urobilinogen Ur Leukocyte Esterase 06/21/17 09:23 WBC RBC Hgb Hct MCV MCH MCHC RDW Coeff of Analilia Plt Count Immature Gran % (Auto) Neut % (Auto) Lymph % (Auto) [place] % (Auto) Eos % (Auto) Baso % (Auto) Immature Gran # (Auto) Neut # Lymph # [place] # Eos # Baso # Sodium Potassium Chloride Carbon Dioxide Anion Gap BUN Creatinine Estimated GFR (MDRD) BUN/Creatinine Ratio Glucose Calcium Total Bilirubin AST ALT Alkaline Phosphatase Total Creatine Kinase Troponin I Total Protein Albumin Globulin Albumin/Globulin Ratio Amylase Lipase Urine Color Yellow Urine Clarity Clear Urine pH 7.5 Ur Specific [place] 1.015 Urine Protein Negative Urine Glucose (UA) Negative Urine Ketones Negative Urine Blood Negative Urine Nitrite Negative Urine Bilirubin Negative Urine Urobilinogen 0.2 Ur Leukocyte Esterase Negative Orders Category Date Time Status EKG-(ED ONLY) Stat CARDIO 06/21/17 06:57 Completed ED IV/MEDIPORT/POWERPORT .ONCE EMERGENCY 06/21/17 06:23 Active AMYLASE Stat LAB 06/21/17 06:56 Completed CBC W/ AUTO DIFF Stat LAB 06/21/17 06:56 Completed COMPREHENSIVE METABOLIC PANEL Stat LAB 06/21/17 06:56 Completed CREATINE KINASE Stat LAB 06/21/17 06:45 Completed LIPASE Stat LAB 06/21/17 06:56 Completed TROPONIN I Stat LAB 06/21/17 06:45 Completed URINALYSIS C & S IF INDICATED Stat LAB 06/21/17 09:23 Completed 0.9 % Sodium Chloride [Saline Flush] MEDS 06/21/17 06:23 Discontinued 1 syr IVF PRN PRN Morphine Sulfate [Morphine 4 mg/ml Vial] MEDS 06/21/17 06:23 Discontinued 4 mg IVP ONCE STA Ondansetron HCl/Pf [Zofran 4 mg/2 ml] MEDS 06/21/17 06:23 Discontinued 4 mg IVP ONCE STA Pantoprazole Sodium [Protonix IV] MEDS 06/21/17 06:23 Discontinued 40 mg IVP ONCE STA Sodium Chloride 0.9% [Sodium Chloride] 1,000 ml MEDS 06/21/17 06:[address] ABD/PEL WO RENAL STONE PROT Stat RADS 06/21/17 06:23 Completed Medications Discontinued Medications Generic Name Dose Route Start Last Admin Trade Name Freq PRN Reason Stop Dose Admin Sodium Chloride 1,000 mls @ 1,000 mls/hr 06/21/17 06:23 06/21/17 07:13 Sodium Chloride IV 06/21/17 07:22 500 mls/hr BOLUS STA Administration Morphine Sulfate 4 mg 06/21/17 06:23 06/21/17 07:15 Morphine 4 Mg/Ml Vial IVP 06/21/17 06:24 4 mg ONCE STA Administration Ondansetron HCl 4 mg 06/21/17 06:23 06/21/17 07:13 Zofran 4 Mg/2 Ml IVP 06/21/17 06:24 4 mg ONCE STA Administration Pantoprazole Sodium 40 mg 06/21/17 06:23 06/21/17 07:16 Protonix Iv IVP 06/21/17 06:24 40 mg ONCE STA Administration Sodium Chloride 1 syr 06/21/17 06:23 06/21/17 07:15 Saline Flush IVF 1 syr PRN PRN Administration To flush IV Vital Signs: Temp Pulse Resp BP Pulse Ox 06/21/17 06:10 97.8 F 101 H 16 146/93 H 91 L Departure - Departure Time of Disposition: 09:00 Pt referred to PMD for follow-up: Yes <DEAN HUERTA - Last Filed: 06/21/17 07:47> <JAYDE CHAPPELL - Last Filed: 06/21/17 23:37> - Departure Disposition: HOME SELF-CARE Discharge Problem: Nausea, Vomiting Abdominal pain Qualifiers: Abdominal location: generalized Qualified Code(s): R10.84 - Generalized abdominal pain Instructions: Low Fat Diet (ED), Abdominal Pain (ED) Condition: Good Additional Instructions: CALL THE CLINIC FOR A FOLLOW UP APPOINTMENT FOR FURTHER GALLBLADDER TESTING AND REFERRAL TO SURGEON. FOLLOW A BLAND/LOW FAT DIET. NORCO 10/325 MG ONE TABLET THREE TIMES A DAY (#9) Allergies/Adverse Reactions: Allergies No Known Allergies Allergy (Verified 05/19/17 18:31) Home Medications: Ambulatory Orders Clonazepam [Klonopin] 1 mg PO TID 02/12/15 Methadone HCl 10 mg PO TID 02/12/15 Oxcarbazepine [Trileptal] 300 mg PO BEDTIME 02/12/15 Pantoprazole Sodium [Protonix] 40 mg PO d 02/12/15 Oxcarbazepine [Trileptal] 150 mg PO DAILY 03/15/16 Ipratropium/Albuterol Neb [Duoneb] 1 vial NEB RTQ8H PRN 06/21/17 Meloxicam [Mobic] 7.5 mg PO DAILYWM 06/21/17 Addendum entered and electronically signed by DEAN HUERTA MD 06/21/17 09:02 : with radha at bedside imaging report of sludge discussed pt will follow with PMD
[2017-06-21 06:58] LABS: BASOPHILS # (AUTO) 0.1 K/uL (0-0.2); BASOPHILS % (AUTO) 0.6 % (0.0-3.0); EOSINOPHILS # (AUTO) 0.2 K/ul (0.0-0.7); EOSINOPHILS % (AUTO) 1.5 % (0.0-7.0); HEMATOCRIT 45.2 % (42.0-52.0); HEMOGLOBIN 15.8 g/dl (14.0-18.0); IMMATURE GRANULOCYTE % (AUTO) 0.5 % (0.0-5.0); LYMPHOCYTES # (AUTO) 1.8 K/uL (0.60-3.4); MEAN CORPUSCULAR HEMOGLOBIN 31.5 pg (27.0-31.0); MONOCYTES % (AUTO) 7.6 (0-10); NEUTROPHILS # (AUTO) 9.9 K/ul (2.0-6.9); NEUTROPHILS % (AUTO) 75.8; PLATELET COUNT 295 10^3/uL (140-440); RED BLOOD COUNT 5.02 10^6/ul (4.70-6.10)
[2017-06-21 07:17] LABS: ALBUMIN 3.7 g/dL (3.4-5.0); ALBUMIN/GLOBULIN RATIO 0.97; BILIRUBIN,TOTAL 0.44 mg/dL (0.00-1.20); BUN/CREATININE RATIO 6.36; CALCIUM 9.5 mg/dL (8.2-10.2); CREATININE 1.1 mg/dL (0.60-1.10); TOTAL PROTEIN 7.5 g/dL (6.4-8.2)
[2017-06-21 07:23] LABS: CREATINE KINASE 105 U/L
[2017-06-21] MEDS ORDERED: TORADOL IM STA (07:54)
[2017-06-21] MEDS ORDERED: NORCO 10-325 PO STA (07:55)
--- NOTE | 2017-06-21 08:30 | CT ---
EXAM: CT of the abdomen pelvis without contrast History: Abdominal pain. Comparison: CT abdomen pelvis 05/19/2017 Technique: Multiplanar CT images through the abdomen pelvis were obtained without the administration of IV contrast Findings: Bibasilar subsegmental atelectasis again identified. The visualized osseous structures ar e unchanged with scoliosis and stable spinal hardware. No change in the multiple low-density liver lesions probably representing cysts. The liver is fatty. Sludge is suggested in the gallbladder. Atherosclerotic vascular calcifications. There is some at rophy of the pancreas. No peripancreatic inflammation. Adrenal glands are unremarkable. No change in the innumerable bilateral renal cystic lesions some which are hyperdense. No change in the nonobs tructing bilateral renal calculi measuring up to 5 mm on the right and 3 mm on the left. No ureteral calculi. No bladder wall thickening. Prostate is not enlarged. No perirectal inflammation. No fr ee air and no ascites. Impression: 1. No acute intra-abdominal or pelvic process. 2. Nonobstructing bilateral nephrolithiasis. 3. Polycystic kidney disease with liver involvement is unchanged. 4. Probable gallbladder sludge. 5. Hepatic steatosis.
[2017-06-21 09:52] LABS: BILIRUBIN,URINE Negative (NEGATIVE); KETONES,URINE Negative (NEGATIVE); LEUKOCYTE ESTERASE ,URINE Negative (NEGATIVE); NITRITE,URINE Negative (NEGATIVE); PH,URINE 7.5 (5-9); PROTEIN,URINE Negative (NEGATIVE); URINE, BLOOD Negative (NEGATIVE)
[2017-06-21 09:53] LABS: ADD URINE MICROSCOPIC NO
== END 2017-06-21 10:03 | disposition home or self-care (01) ==
LOC: ED 06:09
DX: R11.2 Nausea with vomiting, unspecified (principal); R10.84 Generalized abdominal pain; R19.7 Diarrhea, unspecified; K82.9 Disease of gallbladder, unspecified
CPT/HCPCS: 36415; 74176; 80053; 81001; 82150; 82550; 83690; 84484; 85025; 93005; 93010; 96361; 96374; 96375; 99283